=== PATIENT | male | born 1970 | race Two or more races ===

== ENCOUNTER 2025-04-27 12:10 | Day surgery (SDC) | payer MEDICAID, SELFPAY ==
[2025-04-27] VITALS (9 sets, daily range): BP systolic 101–151; BP diastolic 57–104; PULSE 67–88; RESP 11–18; TEMP 36.4–36.8; O2SAT 94–98; BMI 32.1
[2025-04-27] MEDS: RINGERS LACTATED 500 ML 500 ML 20 ML IV (13:12)
[2025-04-27] MEDS: MIDAZOLAM INJ 1 MG/ML VIAL 2 ML (ASD USE ONLY) 2 MG IVP (13:14)
[2025-04-27] MEDS: fentaNYL CIT INJ 50 mCg/ML AMP 2ML (ASD USE ONLY) IVP (13:18)
== END 2025-04-27 14:15 | disposition home or self-care (01) ==
PROVIDERS: PCP Nurse Practitioner Family; Referring Provider Surgery; Visit Provider Surgery
PROC: 0DBE8ZX Excision of Large Intestine, Via Natural or Artificial Opening Endoscopic, Diagnostic (ICD-10-PCS; CPT 45380; principal; 2025-04-27 11:30)
DX: Z12.11 Encounter for screening for malignant neoplasm of colon (principal); K40.90 Unilateral inguinal hernia, without obstruction or gangrene, not specified as recurrent
CPT/HCPCS: 45330; A4217; A4649; J1200; J2250; J3010; J7120